=== PATIENT | male | born 1945 | race Caucasian/White ===

== ENCOUNTER 2023-01-23 23:20 | Emergency (ER) | payer MEDICARE, OTHER ==
[2023-01-23] MEDS ORDERED: TRANDATE 20 MG/4 ML SYRINGE IV ONE ×2 (23:34→23:37)
--- NOTE | 2023-01-23 23:49 | ERPHSYRPT ---
- History of Present Illness Time Seen by Provider: 01/23/23 23:46 Source: patient Exam Limitations: no limitations Patient Subjective Stated Complaint: htn Triage Nursing Assessment: Pt ambulated into ER without diff, family at bedside. Pt c/o htn, pt was seen in Dr. Ambrocio office today for the same issue, he increased his hydralazine today but pt's b/p was 220/80 at home. Pt c/o headache as well. Physician History: Patient is 77-year-old male with significant past medical history of coronary artery disease hypertensive heart disease with heart failure history of hemochromatosis diabetes history of thyroid cancer and pancreatic cancer started having a headache with high blood pressure for last 2 3 days. Patient was seen in primary care office where his hydralazine was increased from 25 mg 4 times a day to 50 mg 4 times a day which he took approximately 8 total pills but his blood pressure continues to stay high and her headache continues so he came to the emergency room. Patient denies any chest pain nausea vomiting diarrhea any blood in the stool or urine. Timing/Duration: day(s) Activities at Onset: none Severity of Pain-Max: none Severity of Pain-Current: none Modifying Factors: Improves With: nothing Nitro Today/Relief: no nitro taken today Aspirin Treatment Today: no aspirin today Associated Symptoms: headaches Allergies/Adverse Reactions: No Known Drug Allergies Allergy (Verified 01/23/23 23:44) Home Medications: Hydrochlorothiazide 25 mg [hydroDIURIL 25 MG] 50 mg PO QID 06/05/12 [History] Levothyroxine Sodium [Synthroid] 125 mcg PO DAILY 06/05/12 [History] PANTOPRAZOLE 40 mg Tablet [Protonix 40MG Tablet] 40 mg PO BID 06/05/12 [History] Hx Tetanus, Diphtheria Vaccination/Date Given: Yes Hx Influenza Vaccination/Date Given: Yes Hx Pneumococcal Vaccination/Date Given: Yes Immunizations Up to Date: Yes Travel Risk - International Travel Have you traveled outside of the country in past 3 weeks: No - Coronavirus Screening Are you exhibiting any of the following symptoms?: No Close contact with a COVID-19 positive Pt in past 14-21 Days: No - Vaccine Status Have you recieved a Covid-19 vaccination: Yes Mica Plate Layer: Moderna - Vaccination Dates Date of 2cond Vaccination (if applicable): . - Review of Systems Constitutional: No Fever, No Chills Eyes: No Symptoms Ears, Nose, & Throat: No Symptoms Respiratory: No Cough, No Dyspnea Cardiac: No Chest Pain, No Edema, No Syncope Abdominal/Gastrointestinal: No Abdominal Pain, No Nausea, No Vomiting, No Diarrhea Genitourinary Symptoms: No Dysuria Musculoskeletal: No Back Pain, No Neck Pain Skin: No Rash Neurological: Headache, No Dizziness, No Focal Weakness, No Sensory Changes Psychological: No Symptoms Endocrine: No Symptoms All Other Systems: Reviewed and Negative - Past Medical History Pertinent Past Medical History: Yes Neurological History: Stroke ENT History: Cataracts Cardiac History: High Cholesterol, Hypertension Respiratory History: No Pertinent History Endocrine Medical History: Diabetes Type II, Thyroid Cancer Musculoskeletal History: Arthritis GI Medical History: Colorectal Cancer, GERD, Liver Cancer, Other History: No Pertinent History Psycho-Social History: Depression Male Reproductive Disorders: Prostate Problems Other Medical History: pancreatic cancer - Past Surgical History Past Surgical History: Yes Neuro Surgical History: No Pertinent History Cardiac: Cardiac Catheterization Respiratory: No Pertinent History Gastrointestinal: Cholecystectomy, Colon Resection, Pancreatic Surgery, Other Musculoskeletal: Orthopedic Surgery Male Surgical History: No Pertinent History Other Surgical History: liver surgery,thyroid surgery-removed - Social History Smoking Status: Never smoker Exposure to second hand smoke: No Drug Use: none Patient Lives Alone: No - Nursing Vital Signs Nursing Vital Signs: Initial Vital Signs Temperature 97.1 F 01/23/23 23:27 Pulse Rate 64 01/23/23 23:27 Respiratory Rate 20 01/23/23 23:27 Blood Pressure 200/75 01/23/23 23:27 O2 Sat by Pulse Oximetry 97 01/23/23 23:27 Pain Scale Pain Intensity 4 - Physical Exam General Appearance: no apparent distress, alert Eye Exam: PERRL/EOMI, eyes nml inspection Ears, Nose, Throat Exam: normal ENT inspection, moist mucous membranes Neck Exam: normal inspection, non-tender, supple Respiratory Exam: normal breath sounds, lungs clear, No respiratory distress Cardiovascular Exam: regular rate/rhythm, normal heart sounds, No edema Gastrointestinal/Abdomen Exam: soft, No tenderness, No mass Back Exam: normal inspection, No CVA tenderness, No vertebral tenderness Extremity Exam: normal inspection, normal range of motion Neurologic Exam: alert, oriented x 3, cooperative, normal mood/affect, nml cerebellar function, sensation nml, No motor deficits Skin Exam: normal color, warm, dry Lymphatic Exam: No adenopathy SpO2: 97 - Course Nursing assessment & vital signs reviewed: Yes Ordered Tests: Medication Summary Discontinued Medications Generic Name Dose Route Start Last Admin Trade Name Sayra PRN Reason Stop Dose Admin Labetalol HCl 20 mg 01/23/23 23:34 01/23/23 23:45 Labetalol Hcl 20 Mg/4 Ml Disp.Syringe IV 01/23/23 23:35 20 mg STAT ONE Administration Labetalol HCl Confirm 01/23/23 23:37 Labetalol Hcl 20 Mg/4 Ml Disp.Syringe Administered 01/23/23 23:38 Dose 20 mg IV .STK-MED ONE - Progress Progress: improved Air Movement: good Progress Note: 01/24/23 00:11 Patient was given 20 mg labetalol IV and within 10 to 15 minutes blood pressure came down to 180/70. Another 5 mg of hydralazine was given which did but patient blood pressure in systolic 1 4150 range and diastolic 60-70 range. Patient is feeling better and headache is improved to. Patient is still advised to take 50 mg hydralazine 4 times a day and follow-up with his physician on Thursday as per his appointment. Blood Culture(s) Obtained: No Antibiotics given: No Counseled pt/family regarding: diagnosis, need for follow-up Medical Desision Making - Discussion of managment Agreed on:: Treatment plan, need for follow-up - Diagnostic Testing Diagnostic test were ordered, analyzed, and reviewed by me: No - Risk of complications The pt has a mod risk of morbidity or mortality based on: Need for prescription drug management - Departure Departure Disposition: Home Clinical Impression: Asymptomatic hypertensive urgency Condition: Stable Critical Care Time: Yes Critical Care Time(excluding separately billable procedures): Critical 30-74 mins Referrals: OLGA LIDIA ALBERT MD [Primary Care Provider] - Follow up/PCP as directed Instructions: High blood pressure emergencies, Malignant Hypertension (DC) Additional Instructions: Take your hydralazine 50 mg 4 times a day. Continue all other medication. Follow-up with your primary care physician as per appointment in 2 to 3 days. Keep your blood pressure measurement. Discharge/Care Plan DAISYADOLPH DOAN was seen on 01/24/23 in the Emergency Room. The patient was counseled regarding Diagnosis,Lab results, Imaging studies, need for follow up and when to return to the Emergency Room. Prescriptions given: Discharge Note I have spoken with the patient and/or caregivers. I have explained the patient's condition, diagnosis and treatment plan based on the information available to me at this time. I have answered the patient's and/or caregiver's questions and addressed any concerns. The patient and/or caregivers have as good understanding of the patient's diagnosis, condition and treatment plan as can be expected at this point. The vital signs have been stable. The patient's condition is stable and appropriate for discharge from the emergency department. The patient will pursue further outpatient evaluation with the primary care physician or other designated or consulting physician as outlined in the discharge instructions. The patient and/or caregivers are agreeable to this plan of care and follow-up instructions have been explained in detail. The patient and/or caregivers have received these instruction. The patient/and or caregivers are aware that any significant change in condition or worsening of symptoms should prompt an immediate return to this or the closest emergency department or call 911.
[2023-01-24] MEDS ORDERED: APRESOLINE 20 MG/ML INJ IV PRN (00:10)
[2023-01-24] MEDS ORDERED: APRESOLINE 20 MG/ML INJ IV STA (00:27)
[2023-01-24] MEDS ORDERED: APRESOLINE 20 MG/ML INJ ONE (00:27)
[2023-01-24 00:47] VITALS: O2SAT 96
[2023-01-24 01:04] VITALS: BP 177/62; PULSE 66
== END 2023-01-24 01:04 | disposition home or self-care (01) ==
LOC: ED 23:20
DX: I16.0 Hypertensive urgency (principal); I11.0 Hypertensive heart disease with heart failure; I50.9 Heart failure, unspecified; R51.9 Headache, unspecified; E11.9 Type 2 diabetes mellitus without complications; E78.5 Hyperlipidemia, unspecified; Z79.899 Other long term (current) drug therapy
CPT/HCPCS: 36000; 96374; 96375; 99283; 99291; J0360